=== PATIENT | female | born 1980 | race Caucasian/White ===

== ENCOUNTER 2021-04-05 09:54 | Emergency (ER) | payer OTHER ==
[~2021-04-05] VITALS: Ht 165.1 cm; Wt 100.0 kg
[2021-04-05] MEDS ORDERED: DiphenhydrAMINE HCL 50 MG/ML VIAL ONE (10:24)
[2021-04-05] MEDS ORDERED: LORazepam 2 MG/ML VIAL ONE (10:24)
[2021-04-05] MEDS ORDERED: HALOPERIDOL LACTATE 5 MG/ML VIAL ONE (10:24)
[2021-04-05] MEDS ORDERED: LORazepam 2 MG/ML VIAL IM ONE (10:25)
[2021-04-05] MEDS ORDERED: DiphenhydrAMINE HCL 50 MG/ML VIAL IM ONE (10:25)
[2021-04-05] MEDS ORDERED: HALOPERIDOL LACTATE 5 MG/ML VIAL IM ONE (10:25)
[2021-04-05 15:00] VITALS: BP 109/74
== END 2021-04-05 15:31 | disposition home or self-care (01) ==
LOC: EMS 09:57
DX: F29 Unspecified psychosis not due to a substance or known physiological condition (principal)
CPT/HCPCS: 96372; 99285; J1200; J1630; J2060

== ENCOUNTER 2022-02-05 11:37 | Emergency (ER) | payer OTHER ==
[~2022-02-05] VITALS: Ht 165.1 cm; Wt 100.0 kg
[2022-02-05 12:28] LABS: BASOPHILS % (AUTO) 1.7 % (0.0-2.0); EOSINOPHILS % (AUTO) 0.4 % (1.0-6.0); HEMATOCRIT 39.9 % (36-46); HEMOGLOBIN 13.5 g/dL (12.0-16.0); LYMPHOCYTES # (AUTO) 1.5 K/uL (1.0-4.8); LYMPHOCYTES % (AUTO) 24.4 % (22.0-44.0); MEAN CORPUSCULAR HEMOGLOBIN 32.5 pg (26.0-34.0); MEAN CORPUSCULAR HGB CONC 33.8 G/dL (31.0-37.0); MEAN CORPUSCULAR VOLUME 96 fL (80-100); MONOCYTES # (AUTO) 0.5 K/uL (0.1-1.0); MONOCYTES % (AUTO) 7.9 % (2.0-9.0); NEUTROPHILS % (AUTO) 65.6 % (40.0-70.0); PLATELET COUNT (AUTO) 289 K/uL (150-450); RED BLOOD CELL COUNT(AUTO) 4.16 MIL/uL (4.00-5.20); RED CELL DISTRIBUTION WIDTH 15.1 % (11.5-14.5)
[2022-02-05 12:38] LABS: ANION GAP 8 mmol/L (8-16); CALCIUM, TOTAL 8.9 mg/dL (8.8-10.5); CARBON DIOXIDE 29 mmol/L (22-29); CHLORIDE 99 mmol/L (98-107); CREATININE 0.74 mg/dL (0.60-1.30); GLUCOSE,RANDOM 103 mg/dL (70-110); POTASSIUM 3.7 mmol/L (3.5-5.1); SODIUM SERUM 136 mmol/L (136-145); UREA NITROGEN, BLOOD 12 mg/dL (7-18)
[2022-02-05 12:40] LABS: GLOMERULAR FILTR. RATE CALC > 60 mL/min (>60)
[2022-02-05 12:42] VITALS: BP 130/70
[2022-02-05 12:52] LABS: HCG,QUANTITATIVE 1 mIU/mL (0-6)
== END 2022-02-05 14:21 | disposition home or self-care (01) ==
LOC: EMS 11:40
DX: R20.2 Paresthesia of skin (principal); F17.210 Nicotine dependence, cigarettes, uncomplicated
CPT/HCPCS: 70450; 80048; 84702; 85025; 99284